=== PATIENT | male | born 1995 | race Caucasian/White ===

== ENCOUNTER 2024-03-07 23:47 | Day surgery (SDC) | payer OTHER, SELFPAY ==
--- OUTSIDE RECORDS SUMMARY | 2024-03-07 23:49 | XMS_ITS | Clinical Summary ---
Author Organization [facility] Address [place], [place] [address] Care Team Providers Care Ham Facer Name Role Phone Pcp, No Primary Care Provider Unavailabl e Allergies No known active allergies Medications No known medications Active Problems No known active problems Immunizations Name Administration Dates Next Due DTaP 1997,1997 DTaP-HIB (TriHIBIT) 08/19/1998,1997 Hepatitis B (Peds) 03/11/1998,1997 Hib Conjugate, Unspecified 1997,1997 Inactivated Polio Vaccine 1997,1997 MMR 08/19/1998 Oral Polio Vaccine 1998 Tdap 01/08/2020 Varicella Vaccine 1998 Family History Medical History Relation Name Comments Other Father hair loss Other Maternal Grandfather hair lo ss No Known Problems Mother Relation Name Status Comments Father Alive Maternal Grandfather Alive Maternal Grandmother Alive Mother Alive Paternal Grandfather Alive Paternal Grandmother Alive Social History Tobacco Use Types Packs/Day Years Used Date Smoking Tobacco: Never Smokeless Tobacco: Never Tobacco Cessation:Counseling Given: Yes Alcohol Use Standard Drinks/Week Comments Yes 0 (1 standard drink = 0.6 oz pur e alcohol) Social Connections Answer Date Recorded Frequency of Communication with Friends and Fami ly Not on file 03/06/2021 Financial Resource Strain Answer Date R ecorded Difficulty of Paying Living Expenses Not on file 03/06/2021 Difficulty of Paying Living Expenses Not on file 03/06/2021 Sex and Gender Information Value Date Recorded Sex Assigned at Not on file 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 Gender Identity Not on file Sexual Orientation Not on file 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 on file Not on file Obstetrics History Last Filed Vital Signs Vital Sign Reading Time Taken Comments Blood Pressure 118/70 04/05/2021 11: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 Pulse 52 04/05/2021 11: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 Temperature 37.2 C (99 F) 12/11/2011 12:51 PM CDT Respiratory Rate 16 12/11/2011 1:52 PM CDT Oxygen Saturation 99% 04/05/2021 11: 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 Inhaled Oxygen Concentration - - Weight 85.6 kg (188 lb 12.8 oz) 022 11: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 Height 179 cm (5' 10.47) 04/05/2021 11 :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 Body Mass Index 26.73 04/05/2021 11: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 Plan of Treatment Health Maintenance Due Date Last Done Comments Depression screening for age 12+ 2009 HIV for age 15-65 2012 HPV series for age 9-26 (1 - Male 3-dose series) 2012 Hepatitis C screening for ag e 18-79 05/21/2015 BMI (ht and wt on same day) for age 18+ 04/05/2022 04/05/2021, 08/26/2020, 01/08/2020 COVID-19 vaccine series ( season) 2023 Influenza for age 9-49 11/05/2023 Tetanus booster 01/07/2030 01/08/2020 Tdap Completed 01/08/2020 Pneumococcal series for age 6-49 Aged Out No longer eligible b ased on patient's age to complete this topic Insurance COMMERCIAL Member Subscriber Plan / Payer (Ef fective 2010-Present) Name:Ciro Feliciano Relation to Subscriber:Child Name:ASHLEY FELICIANO Date of :1965 (Home) Address: [address] [place] [address] [place] [address] Payer ID:Not on file Type:Not on file Address: [address] [address] [place] [address] [employer] Care Teams Ham Facer Relationship Specialty Start Date End Date Pcp, No . PCP - General 01/08/20
[2024-03-07 23:58] VITALS: BP 129/86; PULSE 98; RESP 16; TEMP 36.7; O2SAT 98; BMI 27.2
[2024-03-08] VITALS (16 sets, daily range): BP systolic 99–133; BP diastolic 62–80; PULSE 71–96; RESP 14–17; TEMP 36.2–37.1; O2SAT 92–97; BMI 28.2
--- NOTE | 2024-03-08 00:09 | CRLHL7_ITS ---
For Patients: As a result of the Century Cures Act, medical imaging exams and procedure reports are released immediately into your electronic medical record. You may view this report before your referring provider. If you have questions, please contact your health care provider. INDICATION: Periumbilical and lower abdominal pain. TECHNIQUE: CT abdomen and pelvis acquired with 95 cc Isovue 370 IV contrast. COMPARISON: None. FINDINGS: Lower chest: Unremarkable. Liver: Unremarkable. Normal in size and attenuation. No suspicious masses. Gallbladder and bile ducts: Unremarkable. No stones or inflammation. No biliary dilatation. Pancreas: Unremarkable. No mass or inflammation. Spleen: Unremarkable. Normal in size. No masses. Adrenal glands: Unremarkable. No nodules. Kidneys: Unremarkable. No suspicious masses, stones, or hydronephrosis. GI tract: Dilated fluid-filled appendix with appendiceal wall thickening, mucosal hyperenhancement, and adjacent fat stranding. Calcified appendicolith is present (). No associated focal fluid collection. No evidence of bowel obstruction. Vasculature: Abdominal aorta is normal in caliber. Mesenteric arteries are patent. Lymph nodes: No pathologic lymphadenopathy. Peritoneum/Abdominal Wall: Small volume free fluid in the dependent pelvis. No free air or significant free fluid. Pelvis: Bladder is unremarkable. Prostate is unremarkable. Bones: Unremarkable for age. IMPRESSION: Acute appendicitis without evidence of perforation or other complication at this time. Please note that all CT scans at this facility use dose modulation, iterative reconstruction, and/or weight-based dosing when appropriate to reduce radiation dose to as low as reasonably achievable. Dictated by Armin Quevedo MD @ 03/08/2024 2:02:06 AM (Electronically Signed)
--- NOTE | 2024-03-08 00:25 | ED.ABDPAIN ---
HPI - Abdominal Pain General Date Seen: 03/08/24 Chief Complaint: Abdominal Pain Stated Complaint: Left side abdominal pain Time Seen by Provider: 03/07/24 23:52 Source: patient Mode of arrival: ambulatory Limitations: no limitations History of Present Illness HPI narrative: Patient is a 28-year-old male presenting to the emergency department for left-sided abdominal pain. States the pain starts morning was rather mild. He is able to tolerate it without much issue. States throughout the day. Seem to continue to worse. Took a Tums in our prior to arrival with no improvement in his symptoms he states. Does not take anything else for pain. Denies any associated nausea. States he will bowel movement this afternoon that was normal. Did not notice any blood in it. Has no previous abdominal surgeries. Describes the pain as a stabbing sensation. Denies fevers, chills, chest pain, shortness of breath, lightheadedness, dizziness, weakness, numbness, penile discharge, dysuria, polyuria. Is not aware of any sick contacts. No other concerns noted. Related Data Home Medications ?Medication ?Instructions ?Recorded ?Confirmed No Known Home Medications 04/04/23 05/08/23 Allergies Allergy/AdvReac Type Severity Reaction Status Date / Time No Known Drug Allergies Allergy Verified 03/08/24 01:05 Review of Systems Status of ROS Reports: 10 or more systems reviewed and unremarkable except as noted in History and below [facility] Social History How often do you have a drink containing alcohol: never AUDIT-C Alcohol total score: 0 Non-prescribed substance use: denies use Exam Narrative: Exam Narrative: Const: Well-nourished, Well-developed, in mild distress Eyes: PERRL, no conjunctival injection, and symmetrical lids HENT: Atraumatic external nose and ears. Moist mucous membranes. Neck: Symmetric, trachea midline, No thyromegaly. CVS: RRR, No murmurs or gallops. Peripheral pulses 2+ and equal in all extremities RESP: Unlabored respiratory effort. Clear to auscultation bilaterally. GI: Diffuse lower abdominal tenderness but worse at the umbilicus. Nondistended, No rebound or guarding. MSK:Extremities w/o deformity, Normal Active ROM Skin: Warm, Dry. No rashes or lesions. Neuro: Normal Muscle tone, No focal neurological deficits. Psych: Awake, Alert, & Oriented x3. Appropriate mood and affect. Const: Vital Signs, click to edit/add: Vital Signs - 24 hr 03/07/24 23:58 Temperature 98.1 F Pulse Rate [Pulse Oximeter] 98 Respiratory Rate 16 Blood Pressure [Ri ght Upper Arm] 129/86 Pulse Oximetry 98 Oxygen Delivery Me thod Room Air Course Vital Signs Vital signs: Initial Vital Signs Temperature 98.1 F 03/07/24 23:58 Temperature Source Temporal Artery Scan 03/07/24 23:58 Pulse Rate 98 03/07/24 23:58 Respiratory Rate 16 03/07/24 23:58 Blood Pressure 129/86 03/07/24 23:58 Blood Pressure Mean 100 03/07/24 23:58 Blood Pressure Position Sitting 03/07/24 23:58 Pulse Oximetry 98 03/07/24 23:58 Oxygen Delivery Method Room Air 03/07/24 23:58 Vital Signs Temperature 98.1 F 03/07/24 23:58 Pulse Rate 98 03/07/24 23:58 Respiratory Rate 16 03/07/24 23:58 Blood Pressure 129/86 03/07/24 23:58 Pulse Oximetry 98 03/07/24 23:58 Oxygen Delivery Method Room Air 03/07/24 23:58 Temperature 98.1 F 03/07/24 23:58 Pulse Rate 98 03/07/24 23:58 Respiratory Rate 16 03/07/24 23:58 Blood Pressure 129/86 03/07/24 23:58 Pulse Oximetry 98 03/07/24 23:58 Oxygen Delivery Method Room Air 03/07/24 23:58 Medications Administered Medications: Discontinued Medications Generic Name Dose Route Start Last Admin Trade Name Freq PRN Reason Stop Dose Admin Ketorolac Tromethamine 15 mg 03/08/24 00:09 03/08/24 00:28 Ketorolac 15 Mg/Ml Inj IVP 03/08/24 00:10 15 mg ONCE ONE Administration MDM - Abdominal Pain MDM Narrative Medical decision making narrative: Patient is a 28-year-old male presenting to the emergency department for abdominal pain. Initially was saying the pain is worse in the left but after my examination states the pain actually seems to be worse around the umbilicus. Differential at this time includes gastroenteritis, colitis, diverticulitis, UTI, appendicitis. Is not having any pain the right upper quadrant and gallbladder liver disease seem less likely. Pancreatitis also seems unlikely. With no history of surgery SBO seems to be unlikely. Will order CBC, CMP, lipase, urinalysis, COVID/flu / RSV. Will also a CT scan of the abdomen and pelvis and given Toradol for pain. lab work does show a white blood cell count elevated 13.42 and is neutrophil predominant. CMP shows no concerning abnormalities. Viral swabs are negative. Urinalysis shows no concerning findings. Patient appears otherwise stable and doing well. CT scan reviewed by myself the radiologist shows acute appendicitis without signs of complications. I did speak to the on-call surgeon and she recommends admit to hospitalist for surgery in the morning. Will start antibiotics per her recommendations. the telehealth hospitalist accepted him for admission. He is resting comfortably in bed at this time. Lab Data Labs: Lab Results 03/08/24 Range/Units 00:20 WBC 13.42 H (4.50-11.00) K/uL RBC 5.57 (4.30-5.90) m/uL Hgb 16.9 (13.5-17.5) gm/dL Hct 45.5 (37.0-53.0) % MCV 82 (80-100) fL MCH 30 (26-34) pg MCHC 37 H (32-36) gm/dL RDW Coeff of Danitza 11.5 (11.5-15.5) % Plt Count 245 (140-440) K/uL Neut % (Auto) 73.3 H (42.0-72.0) % Lymph % (Auto) 16.8 L (20-44) % [place] % (Auto) 8.5 (0.0-11.0) % Eos % (Auto) 1.1 (0.0-7.0) % Baso % (Auto) 0.1 (0.0-3.0) % Neut # (Auto) 9.80 H (1.7-7.0) K/uL Lymph # (Auto) 2.30 (0.90-2.90) K/uL [place] # (Auto) 1.10 H (0.00-0.90) K/UL Eos # (Auto) 0.10 (0.00-0.50) K/uL Baso # (Auto) 0.00 (0.00-0.30) K/uL Abs Immat Gran (auto) 0.00 (0.00-0.30) K/uL Imm/Tot Granulo (auto) 0.2 % Sodium 136 (135-149) mmol/L Potassium 4.1 (3.6-5.1) mmol/L Chloride 102 (96-114) mmol/L Carbon Dioxide 26 (20-32) mmol/L Anion Gap 8 (7-15) mEq/L BUN 23 (5-24) mg/dL Creatinine 0.9 (0.5-1.5) mg/dL Estimated Creat Clear 132.47 Estimated GFR 121 ml/min Glucose 95 (60-115) mg/dL Calcium 9.6 (8.4-10.6) mg/dL Total Bilirubin 1.1 (0.1-1.5) mg/dL AST 33 (12-35) U/L ALT 23 (4-50) U/L Alkaline Phosphatase 51 (40-150) U/L Total Protein 8.0 (6.0-8.3) g/dL Albumin 4.8 (3.3-5.0) g/dL Lipase 84 (23-300) U/L Urine Color Yellow (Yellow) Urine Appearance Clear (Clear) Urine pH 7.0 (5.0-8.5) Ur Specific [place] 1.020 (1.000-1.030) Urine Protein Negative (Negative) Urine Glucose (UA) Negative (Negative) Urine Ketones Negative (Negative) Urine Blood Negative (Negative) Urine Nitrite Negative (Negative) Urine Bilirubin Negative (Negative) Urine Urobilinogen 1.0 (0.2-1.0) Ur Leukocyte Esterase Negative (Negative) Urine RBC 0-2 (0-2) Urine WBC 0-2 (0-5) Ur Squamous Epith Cells Few (None-Few) Urine Bacteria None (None) SARS-CoV-2 (PCR) Negative SARS-CoV-2 (Negative) Influenza Type A (PCR) Negative PCR FLU A (Negative) Influenza Type B (PCR) Negative PCR FLU B (Negative) RSV (PCR) Negative PCR RSV (Negative) Imaging Data CT scan abdomen and pelvis: Attestation: I have reviewed the pertinent imaging results. Radiologist's impression: Acute appendicitis without evidence of perforation or other complication at this time. Please note that all CT scans at this facility use dose modulation, iterative reconstruction, and/or weight-based dosing when appropriate to reduce radiation dose to as low as reasonably achievable. Dictated by Armin Quevedo MD @ 03/08/2024 2:02:06 AM Discharge Plan Discharge Clinical Impression: Acute appendicitis Qualifiers: Acute appendicitis type: other Qualified Code(s): K35.890 - Other acute appendicitis without perforation or gangrene Patient Disposition: Admitted As Observation Condition: Stable Prescriptions: No Action No Known Home Medications Follow Up/Referrals: Provider,Not a Local [Primary Care Provider] -
[2024-03-08 00:28] LABS: Appearance Urine Clear (Clear); Bilirubin Urine Negative (Negative); Blood Urine Negative (Negative); Color Urine Yellow (Yellow); Glucose Urine Negative (Negative); Ketones Urine Negative (Negative); Leukocyte Esterase Urine Negative (Negative); Nitrite Urine Negative (Negative); Protein Urine Negative (Negative)
[2024-03-08] MEDS: KETOROLAC 15 MG/ML inj IVP (00:28)
[2024-03-08 00:31] LABS: Basophils Percent Auto 0.1 % (0.0-3.0); Eosinophils Percent Auto 1.1 % (0.0-7.0); Hematocrit 45.5 % (37.0-53.0); Hemoglobin* 16.9 gm/dL (13.5-17.5); Immature Granulocytes Pct Auto 0.2 %; Lymphocytes Percent Auto 16.8 % (20-44); Mean Corpuscular HGB Conc 37 gm/dL (32-36); Mean Corpuscular Hemoglobin 30 pg (26-34); Mean Corpuscular Volume 82 fL (80-100); Monocytes Percent Auto 8.5 % (0.0-11.0); Neutrophils Percent Auto 73.3 % (42.0-72.0); Platelet Count* 245 K/uL (140-440); RDW Coefficient of Variation % 11.5 % (11.5-15.5); Red Blood Count 5.57 m/uL (4.30-5.90); White Blood Count* 13.42 K/uL (4.50-11.00)
--- OUTSIDE RECORDS SUMMARY | 2024-03-08 00:36 | XMS_ITS | Clinical Summary ---
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 PCP - General 01/08/20
[2024-03-08 00:38] LABS: Slide Review Reflex No
[2024-03-08 00:42] LABS: RBC Urine 0-2 (0-2); Squamous Epithelial Cell Urine Few (None-Few); WBC Urine 0-2 (0-5)
[2024-03-08 00:44] LABS: Albumin* 4.8 g/dL (3.3-5.0); Chloride* 102 mmol/L (96-114); Potassium* 4.1 mmol/L (3.6-5.1); Sodium* 136 mmol/L (135-149)
[2024-03-08 00:47] LABS: Alkaline Phosphatase* 51 U/L (40-150); Anion Gap 8 mEq/L (7-15); Aspartate Amino Transferase* 33 U/L (12-35); Bilirubin Total* 1.1 mg/dL (0.1-1.5); Blood Urea Nitrogen* 23 mg/dL (5-24); Calcium* 9.6 mg/dL (8.4-10.6); Carbon Dioxide* 26 mmol/L (20-32); Creatinine* 0.9 mg/dL (0.5-1.5); Est. Creatinine Clearance* 132.47; Estimated Glomerular Filt Rate 121 ml/min; Glucose* 95 mg/dL (60-115); Lipase* 84 U/L (23-300)
[2024-03-08 00:48] LABS: Alanine Aminotransferase* 23 U/L (4-50)
[2024-03-08 01:04] LABS: PCR FLU A Negative PCR FLU A (Negative); PCR FLU B Negative PCR FLU B (Negative); PCR RSV Negative PCR RSV (Negative); SARS PCR* Negative SARS-CoV-2 (Negative)
[2024-03-08] MEDS: cefOXitin 2 GM in 0.9 % SODIUM CHLORIDE Mini-bag 100 ML IVPB ×2 (02:25→08:19)
--- NOTE | 2024-03-08 05:22 | W.PM.TELEH&P ---
Telehealth- H&P: HPI History of Present Illness Date Seen: 03/08/24 Chief complaint: Left side abdominal pain Narrative: Ciro Anthony is seen as an Interactive Telehealth visit. Ciro Anthony is a 28 year old male-With no significant past medical history presented emergency department with complaints of left-sided abdominal pain that started earlier in the morning. Patient reports he woke up with abdominal pain in the left side. He initially thought it was likely gas pain or he needs to have a bowel movement. He says the pain only progressed throughout the day. He ate supper around 6 PM and by the time he was going to bed, his abdominal pain had gotten significantly worse and he decided to come in to the emergency department for further evaluation. He is denying any nausea vomiting, fever or chills. NO loose stools. c/o difficulty taking deep breaths due to pain in his abdomen that gets worse with deep breaths. He denies any recent illness. Further workup in the emergency department showed CBC with mild leukocytosis of white count of 13.4, hemoglobin 16.9, hematocrit 45.5, platelets 245, sodium 136, potassium 4.1, chloride 102, bicarb 26, BUN 23, creatinine 0.9, glucose 95, calcium 9.5, total bili 1.1, AST 33, ALT 23, alk phos 51, lipase 84, UA is negative, SARS [place] 2, influenza A, B and RSV all negative. CT abdomen pelvis showed acute appendicitis without evidence of perforation or other complication at this time. ER provider discussed case with general surgery Recommended hospitalist admission and they will evaluate the patient in the morning. Review of Systems Narrative: Complete ROS was performed, pertinent positives and negatives per HPI. [facility] Social History What is your current living situation?: I presently have a place to live Problems where you live: no known problems Problems where you live details: na In the past 12 months, utilities in danger of being shut off: no In past 12 months, lack of transportation kept you from medical appts, meetings, work, or getting things needed for daily living: no In the past 12 mos, have been you worried that your food would run out before you had money to buy more?: never true In the past 12 mos, the food you bought just didn't last and you didn't have money to buy more?: never true Smoking Status: Never smoker How often do you have a drink containing alcohol: 2-3 times a week Alcohol type: beer How many standard drinks containing alcohol do you have on a typical day: 3 or 4 How often do you have six or more drinks on one occasion: Never AUDIT-C Alcohol total score: 4 Non-prescribed substance use: denies use Caffeine: Yes (soda, energy drinks, coffee) How often does anyone, including family, friends and others, physically hurt you: never How often does anyone, including family, friends and others, insult or talk down to you: rarely How often does anyone, including family, friends and others, threaten you with harm: never How often does anyone, including family, friends and others, scream or curse at you: rarely service: No Health Related Social Needs: Other personal risk factors, not elsewhere classified (Z91.89) Meds Home Medications and Allergies Home Medications ?Medication ?Instructions ?Recorded ?Confirmed ?Type No Known Home Medications 04/04/23 05/08/23 History Allergies Allergy/AdvReac Type Severity Reaction Status Date / Time No Known Drug Allergies Allergy Verified 03/08/24 01:05 Exam Narrative Exam Narrative: Physical Exam GENERAL: ?vital signs reviewed, well developed and nourished, in no distress HEART: Regular rate and rhythm without any rubs, murmurs, or gallops. LUNGS: Clear to auscultation bilaterally with good air movement throughout ABDOMEN: + tenderness in lower abd, left worse then right. No rebound/guarding. + bs , no distention noted. EXTREMITIES: Strength and sensation is observed to be grossly within normal limits in the upper and lower extremities.? No focal strength deficit is observed. SKIN:? Observed warm and dry with color normal Const Vital Signs, click to edit/add: Vital Signs - 24 hr 03/07/24 23:58 03/08/24 02:31 03/08/24 03:07 Temperature 98.1 F 98.8 F Pulse Rate [Pulse Oximeter] 98 78 96 Respiratory Rate 16 16 16 Blood Pressure [Left Arm] 126/80 Blood Pressure [Right Upper Arm] 129/86 133/76 Pulse Oximetry 98 94 96 Oxygen Delivery Method Room Air Room Air Room Air 03/08/24 03:07 Temperature Pulse Rate [Pulse Oximeter] Respiratory Rate 16 Blood Pressure [Left Arm] Blood Pressure [Right Upper Arm] Pulse Oximetry 94 Oxygen Delivery Method Room Air Hospitalist - H&P: Result Labs Labs: Short CBC 03/08/24 Range/Units 00:20 WBC 13.42 H (4.50-11.00) K/uL Hgb 16.9 (13.5-17.5) gm/dL Hct 45.5 (37.0-53.0) % Plt Count 245 (140-440) K/uL BMP 03/08/24 00:20 Sodium 136 Potassium 4.1 Chloride 102 Carbon Dioxide 26 BUN 23 Creatinine 0.9 Glucose 95 Calcium 9.6 Liver Function 03/08/24 Range/Units 00:20 Total Bilirubin 1.1 (0.1-1.5) mg/dL AST 33 (12-35) U/L ALT 23 (4-50) U/L Alkaline Phosphatase 51 (40-150) U/L Albumin 4.8 (3.3-5.0) g/dL Urine 03/08/24 Range/Units 00:20 Urine Color Yellow (Yellow) Urine Appearance Clear (Clear) Urine pH 7.0 (5.0-8.5) Ur Specific [place] 1.020 (1.000-1.030) Urine Protein Negative (Negative) Urine Glucose (UA) Negative (Negative) Assessment and Plan Assessment and plan (1) Acute appendicitis: Status: Acute Plan Patient is presenting to emergency department with lower abdominal pain that started in the morning and has progressively gotten worse. Lab work significant for leukocytosis with white count of 13. CT scan showing acute appendicitis without complication. General surgery was consulted and recommend hospitalist admission for now. Plan - cont with NPO, IV fluids, pain control - cont IV abx with ceftriaxone and flagyl - General surgery aware. formal evaluation by general surgery in am. - hold off any DVT proph due to anticipating surgery in am. Total Time Spent Total Time Spent: 35 Telehealth: Statement Statement Telehealth Visit: Today's History and Physical is provided via interactive telehealth by Nai Perez MD.? Patient is located at [facility].? Provider is located at [facility] Nursing staff assisted with the patient's exam. The visit being done today meets criteria for a telehealth visit and the patient or patient?s parent/guardian is aware the visit is a telehealth visit.
--- NOTE | 2024-03-08 05:42 | PC.NURSE ---
Pt arrived to floor approx 0300, admission completed, rating abd pain 4/10, right side greater than left, but stated relief with prn toradol pt received in ED. denies N/V, chest pain, headache. NPO since 1800 on 03/07/24, per pt report.
[2024-03-08] MEDS: 0.9 % SODIUM CHLORIDE 1000 ml 1,000 ML 100 ML IV (06:09)
[2024-03-08] MEDS: SODIUM CHLORIDE 0.9 % (FLUSH) 10 ML SYRINGE 5 ML IVF (06:10)
--- NOTE | 2024-03-08 08:48 | PM.GSCN ---
History of Present Illness Consult details Date Seen: 03/08/24 Consult date: 03/08/24 Narrative: The patient is a 28-year-old male who presented to the emergency department last night with abdominal pain. He states that yesterday morning he developed pain in his mid to left abdomen. He has never had pain like this before. He thought that maybe it was gas pain and laying on his side seemed to make the pain better. However it got worse over several hours any came in to be seen. Movement makes the pain worse. He has not had nausea or vomiting. No changes in bowel or bladder function. He has never had surgery before and has no medical issues. [facility] Social History Narrative: He does not smoke. He drinks alcohol 3 times a week. 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 He is . What is your current living situation?: I presently have a place to live Problems where you live: no known problems Problems where you live details: na In the past 12 months, utilities in danger of being shut off: no In past 12 months, lack of transportation kept you from medical appts, meetings, work, or getting things needed for daily living: no In the past 12 mos, have been you worried that your food would run out before you had money to buy more?: never true In the past 12 mos, the food you bought just didn't last and you didn't have money to buy more?: never true Smoking Status: Never smoker How often do you have a drink containing alcohol: 2-3 times a week Alcohol type: beer How many standard drinks containing alcohol do you have on a typical day: 3 or 4 How often do you have six or more drinks on one occasion: Never AUDIT-C Alcohol total score: 4 Non-prescribed substance use: denies use Caffeine: Yes (soda, energy drinks, coffee) How often does anyone, including family, friends and others, physically hurt you: never How often does anyone, including family, friends and others, insult or talk down to you: rarely How often does anyone, including family, friends and others, threaten you with harm: never How often does anyone, including family, friends and others, scream or curse at you: rarely service: No Health Related Social Needs: Other personal risk factors, not elsewhere classified (Z91.89) Meds Home Medications and Allergies Home Medications ?Medication ?Instructions ?Recorded ?Confirmed ?Type No Known Home Medications 04/04/23 05/08/23 History Allergies Allergy/AdvReac Type Severity Reaction Status Date / Time No Known Drug Allergies Allergy Verified 03/08/24 01:05 Exam Narrative: Exam Narrative: General appearance: Alert, cooperative, and in no distress Eyes: PERRLA, eye lids clear, and sclera white HENT Head: Normocephalic Ears: External ears normal Pulmonary: Breathing nonlabored on room air Cardiovascular Heart: Regular rate Extremities: warm and well perfused Gastrointestinal Abdominal: Patient feels tenderness on the right when pressing the left lower quadrant. He has tenderness on the right lower quadrant with rebound Musculoskeletal: Extremities: Upper: Both upper extremities have normal joint range of motion and intact strength. Lower: Both lower extremities have normal joint range of motion and intact strength. Skin: Normal skin color, texture, and turgor. Neurologic: No focal deficits Psychiatric: Alert, oriented, cooperative, normal affect. Const: Vital Signs, click to edit/add: Vital Signs - 24 hr 03/07/24 23:58 03/08/24 02:31 03/08/24 03:07 Temperature 98.1 F 98.8 F Pulse Rate [Pulse Oximeter] 98 78 96 Respiratory Rate 16 16 16 Blood Pressure [Le ft Arm] 126/80 Blood Pressure [Ri ght Upper Arm] 129/86 133/76 Pulse Oximetry 98 94 96 Oxygen Delivery Me thod Room Air Room Air Room Air 03/08/24 03:07 03/08/24 07:00 Temperature Pulse Rate [Pulse Oximeter] 84 Respiratory Rate 16 16 Blood Pressure [Le ft Arm] 127/70 Blood Pressure [Ri ght Upper Arm] Pulse Oximetry 94 97 Oxygen Delivery Me thod Room Air Room Air Results Labs Labs: Abnormal lab results 03/08/24 Range/Units 00:20 WBC 13.42 H (4.50-11.00) K/uL MCHC 37 H (32-36) gm/dL Neut % (Auto) 73.3 H (42.0-72.0) % Lymph % (Auto) 16.8 L (20-44) % Neut # (Auto) 9.80 H (1.7-7.0) K/uL [place] # (Auto) 1.10 H (0.00-0.90) K/UL Diabetes panel 03/08/24 Range/Units 00:20 Sodium 136 (135-149) mmol/L Potassium 4.1 (3.6-5.1) mmol/L Chloride 102 (96-114) mmol/L Carbon Dioxide 26 (20-32) mmol/L BUN 23 (5-24) mg/dL Creatinine 0.9 (0.5-1.5) mg/dL Glucose 95 (60-115) mg/dL Calcium 9.6 (8.4-10.6) mg/dL AST 33 (12-35) U/L ALT 23 (4-50) U/L Alkaline Phosphatase 51 (40-150) U/L Total Protein 8.0 (6.0-8.3) g/dL Albumin 4.8 (3.3-5.0) g/dL Calcium panel 03/08/24 Range/Units 00:20 Calcium 9.6 (8.4-10.6) mg/dL Albumin 4.8 (3.3-5.0) g/dL Pituitary panel 03/08/24 Range/Units 00:20 Sodium 136 (135-149) mmol/L Potassium 4.1 (3.6-5.1) mmol/L Chloride 102 (96-114) mmol/L Carbon Dioxide 26 (20-32) mmol/L BUN 23 (5-24) mg/dL Creatinine 0.9 (0.5-1.5) mg/dL Glucose 95 (60-115) mg/dL Calcium 9.6 (8.4-10.6) mg/dL Adrenal panel 03/08/24 Range/Units 00:20 Sodium 136 (135-149) mmol/L Potassium 4.1 (3.6-5.1) mmol/L Chloride 102 (96-114) mmol/L Carbon Dioxide 26 (20-32) mmol/L BUN 23 (5-24) mg/dL Creatinine 0.9 (0.5-1.5) mg/dL Glucose 95 (60-115) mg/dL Calcium 9.6 (8.4-10.6) mg/dL Total Bilirubin 1.1 (0.1-1.5) mg/dL AST 33 (12-35) U/L ALT 23 (4-50) U/L Alkaline Phosphatase 51 (40-150) U/L Total Protein 8.0 (6.0-8.3) g/dL Albumin 4.8 (3.3-5.0) g/dL All other labs normal. Imaging Abdomen CT scan report/results: report reviewed and image reviewed Additional studies: CT abdomen pelvis: IMPRESSION: Acute appendicitis without evidence of perforation or other complication at this time. Dictated by Armin Quevedo MD @ 03/08/2024 2:02:06 AM Progress Note:A&P Assessment and plan (1) Acute appendicitis: Status: Acute Plan The patient is a 28-year-old male with acute appendicitis. We discussed that appendectomy is the preferred treatment for this. This can most often be done laparoscopically. We discussed risks and benefits of the procedure including but not limited to bleeding, need for conversion to open, risk of injury to other structures, need for possible bowel resection, and abscess formation. The patient understands that the risk of abscess is higher if the appendix is perforated. For that reason, we generally keep patient is in the hospital on IV antibiotics until vital signs and white blood cell count had normalized. We also discussed recovery including 2 weeks of lifting restrictions. He is agreeable to proceed we will plan on surgery urgently this morning.
[2024-03-08] MEDS: BUPIVACAINE 0.25% 30 ML INJECTION (09:18)
--- OUTSIDE RECORDS SUMMARY | 2024-03-08 09:46 | XMS_ITS | Clinical Summary ---
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 ENGINEER Temperature 37.2 C (99 F) 12/11/2011 12:51 PM CDT Respiratory Rate 16 12/11/2011 1:52 PM CDT Oxygen Saturation 99% 04/05/2021 11: 46 AM TOWBOAT ENGINEER Inhaled Oxygen Concentration - - Weight 85.6 kg (188 lb 12.8 oz) 022 11:46 AM TOWBOAT ENGINEER Height 179 cm (5' 10.47) 04/05/2021 11 :46 AM TOWBOAT ENGINEER Body Mass Index 26.73 04/05/2021 11:46 AM TOWBOAT ENGINEER Plan of Treatment Health Maintenance Due Date [...] to complete [place] [id number] [employer]CIAL [employer]ER[employer] Member Subscriber Plan / Payer (Ef fective 2011-Present) Name:Ciro Feliciano Relation to Subscriber:Self Name:Gabrielle Ciro S Payer ID:Not on file Group ID:NONE Type:Not on file Address: [facility] [id number] [facility] SupportLocal [facility] [address] [place] [id number] Care Teams [employer] Dynamics Consultant Relationship Specialty Start Date End Date Pcp, No . PCP - General 01/08/20
--- NOTE | 2024-03-08 10:07 | PM.GSPRC ---
Operative Note Date of procedure: 03/08/24 Pre-op diagnosis: Acute appendicitis Post-op diagnosis: Acute appendicitis with suppurative peritonitis Type of Procedure: Laparoscopic appendectomy Indications: The patient is a 28-year-old male who presented to the emergency department with abdominal pain. Workup revealed acute appendicitis without evidence of perforation. Appendectomy was recommended and after discussing risks and benefits he agreed to proceed. Procedure Description: After discussing the risks and benefits of the procedure, the patient signed informed consent.? The operative site was marked and the patient was brought to the operating room and placed on the operating table in supine position.? Care was taken to pad the patient's pressure points.?? The patient was then intubated by anesthesia.?? The operative site was then prepped and draped in the usual sterile fashion.? A time-out was then performed. Entrance to the abdomen was obtained via a 5 mm optical trocar in the left upper quadrant. The abdomen was insufflated and briefly surveyed for any signs of injury. There were none. A 12 mm port was placed inferior to the umbilicus as well as a 5 mm port in the left lower quadrant. Both were done under direct vision. The patient was then placed in Trendelenburg position with the right side up. The small bowel was gently moved out of the way and the appendix was in view. It was markedly inflamed. It was adherent to the retroperitoneum and so cautery was used to divide the filmy adhesions to allow the appendix to be pulled into view. The mesoappendix was firm and inflamed which made grasping the appendix difficult. I used LigaSure then to carefully divide the mesoappendix, and free up the appendix to better expose the base of the appendix. Mesenteric window was created using a [place] dissector. I divided the mesoappendix using LigaSure up to this location. Then, using a purple load Endo-SAMEER stapler, I divided the base of the appendix. The staple line was inspected for bleeding. And there was none. The appendix was then removed from the abdomen using an Endo-Catch bag. There was purulent-appearing fluid in the pelvis, which was likely reactive as there was no evidence of perforation of the appendix. This was suction from the abdomen. The ports were then removed and the abdomen was desufflated. The 12 mm port site fascia was closed with 0 Vicryl. The skin was then closed with absorbable subcuticular suture. Sterile dressings were then applied. Instrument sponge and needle counts were correct at the end of the case. The patient was then woken and transported to the PACU in stable condition. The patient tolerated the procedure well. Findings: Acute appendicitis with murky fluid in the pelvis. No evidence of perforation. Anesthesia: GETA Surgeon: Hailey Drake MD Estimated blood loss (mL): 5 Specimen: Appendix Condition: stable Disposition: PACU
--- NOTE | 2024-03-08 10:16 | W.ANESCHARGE ---
Anesthesia Charges Start Date/Time Anesthesia Start Date: 03/08/24 Anesthesia Start Time: 08:55 Stop Date/Time Anesthesia Stop Date: 03/08/24 Anesthesia Stop Time: 10:15
--- NOTE | 2024-03-08 10:51 | SUR.PHASEI ---
patient met discharge criteria per anesthesia
[2024-03-08] MEDS: ACETAMINOPHEN 325 MG TABLET 650 MG PO (14:20)
--- NOTE | 2024-03-08 15:00 | PC.NURSE ---
The patient discharged home with mild pain in his abdomen post op appendectomy. 3 lap sites CDI with steri strips. Educated regarding S/S of infection and bathing instructions. Pain management techniques were discussed with the patient and his as well. Followup appointment was scheduled with Dr Drake. [facility] educated on antibiotic use and probiotic. The patient was wheeled off the unit. Angelic PRATT BSN
== END 2024-03-08 14:35 | disposition home or self-care (01) ==
LOC: ED 03-08 02:11 → MEDSURG 03-08 07:01 → SS 03-08 09:44 → MEDSURG 03-08 09:45
PROVIDERS: Emergency Provider Student in an Organized Health Care Education/Training Program; Visit Provider Surgery
PROC: 0DTJ4ZZ Resection of Appendix, Percutaneous Endoscopic Approach (ICD-10-PCS; CPT 44970; principal; 2024-03-08 08:30)
DX: K35.33 Acute appendicitis with perforation, localized peritonitis, and gangrene, with abscess (principal); R10.12 Left upper quadrant pain
CPT/HCPCS: 44970; 00840; 36415; 74177; 80053; 81001; 83690; 85025; 87631; 88304; 99285; A9270; G0378; J0330; J0665; J0694; J1885; J2250; J2405; J2704; J2710; J3010; J7030; Q9967